=== PATIENT | male | born 1990 | race Caucasian/White ===

== ENCOUNTER 2023-06-27 19:25 | Emergency (ER) | payer BC ==
[~2023-06-27] VITALS: Ht 160 cm; Wt 68.0 kg
[2023-06-27 20:00] VITALS: BP 142/67; PULSE 99; RESP 16; TEMP 97.6; O2SAT 99
[2023-06-27 22:09] VITALS: O2SAT 99
[2023-06-27] MEDS ORDERED: ERYT5OIN51 OP (22:48)
== END 2023-06-27 23:05 | disposition home or self-care (01) ==
LOC: MED 19:25
DX: H10.89 Other conjunctivitis (principal); B96.89 Other specified bacterial agents as the cause of diseases classified elsewhere; Z79.899 Other long term (current) drug therapy
CPT/HCPCS: 99282